=== PATIENT | female | born 1990 | race Two or more races ===

== ENCOUNTER 2023-02-19 00:24 | Inpatient (IN) | payer MEDICAID, OTHER ==
[~2023-02-19] VITALS: Ht 167.6 cm; Wt 96.6 kg
[2023-02-19] MEDS ORDERED: PROMETHAZINE HCL 25 MG/ML 1ML IV PRN (01:15)
[2023-02-19] MEDS ORDERED: PHISODERM TOP SOLN 240ML BTL TOP PRN (01:15)
[2023-02-19] MEDS ORDERED: WITCH HAZEL-GLYCERIN PAD TOP PRN (01:15)
[2023-02-19] MEDS ORDERED: BUTORPHANOL TARTRATE 2 MG/1 ML VIAL IV PRN ×2 (01:15)
[2023-02-19] MEDS ORDERED: DERMOPLAST 60ML BOTTLE TOP PRN (01:15)
[2023-02-19] MEDS ORDERED: LACTATED RINGER'S 1,000 ML IV SCH (01:15)
[2023-02-19] MEDS ORDERED: LIDOCAINE 2%HCL (LOCAL ANESTH.) INJ 20ML MDV IJ PRN (01:15)
[2023-02-19] MEDS ORDERED: PENICILLIN G POT 5MIL/D5 50ML 50 ML IV ONE (01:30)
[2023-02-19 01:35] LABS: Urine Bacteria FEW /hpf (None Seen); Urine Blood 2+ /uL (Negative); Urine Clarity HAZY (Clear); Urine Protein, UAD Negative (Negative); Urine Urobilinogen Normal (Negative); Urine WBC 10 /hpf (0 - 5)
[2023-02-19 01:36] LABS: Urine Color Straw (Yellow)
[2023-02-19 01:44] LABS: Amphetamine Screen, Urine Neg (NEGATIVE)
[2023-02-19 01:45] LABS: Basophils # (auto) 0.1 10 ^3/uL (0-0.2); Basophils % (auto) 0.5 % (0.0-2.0); Eosinophils # (auto) 0.2 10 ^3/uL (0-0.8); Eosinophils % (auto) 1.2 % (0.0-7.0); Hematocrit 35.7 % (36.0-46.0); Hemoglobin 11.8 g/dL (12.2-16.2); Lymphocytes # (auto) 1.8 10 ^3/uL (0.4-5.4); Lymphocytes % (auto) 12.7 % (10.0-50.0); Mean Corpuscular Hemoglobin 28.7 pg (28.0-32.0); Mean Corpuscular Volume 86.9 fL (80.0-100.0); Monocytes % (auto) 6.6 % (0.0-12.0); Neutrophils # (auto) 11.4 10 ^3/uL (1.6-8.6); Nucleated Red Blood Cells % 0.1 %; Red Blood Cells 4.11 10^6/uL (4.0-5.20); Red Cell Distribution Width 13.5 % (11.8-14.3); White Blood Cell 14.4 10^3/uL (4.4-10.8)
[2023-02-19 01:45] LABS: Barbiturate Scree,Urine Neg (NEGATIVE); Benzodiazephine Screen, Urine Neg (NEGATIVE); Cannabinoid Screen, Urine Pos (NEGATIVE); Cocaine Screen, Urine Pos (NEGATIVE); Opiate Scree,Urine Neg (NEGATIVE); Phencyclidine Screen, Urine Neg (NEGATIVE)
[2023-02-19] MEDS ORDERED: LACT. RINGERS/OXYTOCIN 20UNITS 500 ML IV ONE ×2 (02:00→02:30)
[2023-02-19 02:04] LABS: Alanine Aminotransferase 12 U/L (7-40); Albumin 3.7 g/dL (3.2-4.8); Alkaline Phosphatase 121 U/L (46-116); Anion Gap 8 (5-15); Aspartate Aminotransferase 20 U/L (13-40); Calcium 8.7 mg/dL (8.5-10.1); Carbon Dioxide 22 mmol/L (20-30); Chloride 107 mmol/L (98-107); Glucose 85 mg/dL (74-106); Potassium 3.9 mmol/L (3.5-5.1); Sodium 137 mmol/L (136-145)
[2023-02-19 02:05] LABS: Bilirubin, Total 0.4 mg/dL (0.2-1.0); Total Protein 6.4 g/dL (5.7-8.2)
[2023-02-19 02:15] LABS: INR 0.95 (0.9-1.15)
[2023-02-19 03:10] LABS: BUN/Creatinine Ratio 10.2 (10.0-20.0); Blood Urea Nitrogen < 5 mg/dL (9-23)
[2023-02-19] MEDS ORDERED: ACETAMINOPHEN 325 MG TAB PO PRN (03:45)
[2023-02-19] MEDS ORDERED: ONDANSETRON ODT 4 MG TAB PO PRN (03:45)
[2023-02-19 04:06] LABS: Protein, Urine 12.6 mg/dL (0.0-11.9)
[2023-02-19 04:08] LABS: Creatinine, Urine 61.98 mg/dL (30.0-125.0); Urine Protein/Creatinine Ratio 0.2
[2023-02-19] MEDS: IBUPROFEN 600 MG TAB PO PRN ×2 (04:11→15:33)
[2023-02-19 05:00] VITALS: BP 132/68; PULSE 84; RESP 18; TEMP 97.8; O2SAT 98
[2023-02-19] MEDS ORDERED: PENICILLIN G POTASSIUM 2,500,000 UNITS in D5W 5% 50 ML IV SCH (05:30)
[2023-02-19 07:00] VITALS: BP 128/70; PULSE 83; RESP 17; TEMP 97.5; O2SAT 97
[2023-02-19] MEDS ORDERED: DEXTROSE (ORAL) 12.5g/31ml 0.4g/ml GEL PO ONE (07:30)
[2023-02-19 11:30] VITALS: BP 121/67; PULSE 78; RESP 18; TEMP 98; O2SAT 97
[2023-02-19 15:09] VITALS: BP 118/71; PULSE 78; RESP 18; TEMP 98; O2SAT 98
[2023-02-19 18:59] VITALS: BP 126/79; PULSE 95; RESP 20; O2SAT 96
[2023-02-19 21:31] VITALS: BP 126/79; PULSE 95; RESP 20; TEMP 98; O2SAT 96
[2023-02-21 07:06] LABS: Rubella Antibodies, IgG 1.69 index (Immune >0.99)
[2023-02-21 08:06] LABS: RPR Non Reactive (Non Reactive)
== END 2023-02-19 21:30 | disposition home or self-care (01) | DRG 560 ==
LOC: LDRP 00:24 → OBSVTOIN 01:02 → LDRP 01:15
PROVIDERS: ADMIT Obstetrics & Gynecology; ATTEND Obstetrics & Gynecology
PROC: 10E0XZZ Delivery of Products of Conception, External Approach (ICD-10-PCS; principal; 2023-02-19)
DX: O62.3 Precipitate labor (principal); Z37.0 Single live birth; O69.81X0 Labor and delivery complicated by cord around neck, without compression, not applicable or unspecified; Z3A.39 39 weeks gestation of pregnancy
CPT/HCPCS: 36415; 59025; 59409; 80053; 80307; 81001; 81002; 82570; 84156; 84550; 85025; 85610; 85730; 86592; 86703; 86762; 86850; 86900; 86901; 87340; 96360; 96361; 96365; 96366; G0378; J2540; J2590; J7060